=== PATIENT | female | born 1975 | race Caucasian/White ===

== ENCOUNTER 2016-09-10 10:15 | Emergency (ER) | payer MEDICAID, OTHER ==
[2016-09-10 10:31] VITALS: TEMP 98.1
[2016-09-10 10:50] LABS: COLOR YELLOW; LEUKOCYTE ESTERASE,URINE NEGATIVE (NEGATIVE); NITRITE,URINE NEGATIVE (NEGATIVE)
[2016-09-10] MEDS ORDERED: KETOROLAC 30 MG/1 ML SDV ONE (11:04)
[2016-09-10] MEDS ORDERED: KETOROLAC 30 MG/1 ML SDV IM ONE (11:05)
--- NOTE | 2016-09-10 11:07 | EDPHY ---
H & P Time Seen by Provider: 09/10/16 10:39 HPI/ROS: Chief complaint. Back pain HPI. 40-year-old female history mid back pain for 2 years. It began after endometrial surgery. There was apparently tissue on the posterior abdomen that was unresectable. It is associated with menstrual cycles that it exacerbates. He has had no recent injury and the discomfort in his worse over the past 2 days. Still in the same place but just worse. No radiation to her legs. No bowel or bladder symptoms. No weakness. She tells me no x-ray is ever been done of her back over the past 2 years. Also in the last 2 days she has had urinary frequency without burning. No fever. ROS Constitutional. no fever/chills, no weakness Eyes. no problems with vision ENT. no sore throat, no nasal drainage Cardiovascular. no chest pain Respiratory. no shortness of breath, no cough Abdominal. no abdominal pain, no nausea/vomiting, no diarrhea . no problems urinating MS. Mid back pain Skin. no rash Lymph. no swollen glands Neuro. no headache, no dizziness, no difficulty walking or with speech Past Medical/Surgical History: Past medical history significant for cholecystectomy, elbow surgery, depression obesity dysmenorrhea, hysterectomy, endometriosis Social History: Single, daily smoker, no alcohol Smoking Status: Current every day smoker Physical Exam: General Appearance: Alert well-developed female mild distress vital signs are stable Eyes: Pupils equal and round no pallor or injection. ENT, Mouth: Mucous membranes are moist. Respiratory: There are no retractions, lungs are clear to auscultation. Cardiovascular: Regular rate and rhythm. Gastrointestinal: Abdomen is soft and nontender, no masses, bowel sounds normal. Neurological: Awake and alert, sensory and motor exams grossly normal. Skin: Warm and dry, no rashes. Musculoskeletal: Neck is supple nontender. Tenderness to palpation T10-11 area. No swelling. No surface trauma. Extremities symmetrical, full range of motion. Psychiatric: Patient is oriented X 3, there is no agitation. Constitutional: Initial Vital Signs Temperature (C) 36.7 C 09/10/16 10:20 Heart Rate 68 09/10/16 10:20 Respiratory Rate 18 09/10/16 10:20 Blood Pressure 180/93 H 09/10/16 10:20 O2 Sat (%) 96 09/10/16 10:20 O2 Delivery Mode Room Air Allergies/Adverse Reactions: Penicillins Allergy (Severe, Verified 09/10/16 10:32) "can't breathe" bandaids Allergy (Uncoded 09/10/16 10:32) Home Medications: Medication Instructions Recorded oxyCODONE/APAP 325 [Percocet 1 tab PO Q4-6PRN PRN #12 tab 09/10/16 5/325] Medical Decision Making - Diagnostics Imaging: X-ray T and L-spine show some DJD but no acute fracture or dislocation Procedures: IM Toradol ED Course/Re-evaluation: Urinalysis is normal. Re-evaluation 11:45 a.m. and patient is stable. She and I discussed imaging study results, laboratory evaluation, treatment plan including criteria for return importance of follow-up and further evaluation. She expresses understanding and agreement Differential Diagnosis: The working diagnosis has been endometriosis affecting the posterior aspect of the abdomen. This is certainly possible. I was concerned about lytic lesions in the spine which I do not see. It is possible that the patient has HNP of the thoracic spine. She had urinary frequency and I considered urinary tract infection pyelonephritis which she does not seem to have. No evidence for cauda equina syndrome - Data Points Laboratory Results: 09/10/16 10:45 Urine Color YELLOW Urine Appearance CLEAR Urine pH 8.0 H (5.0-7.5) Ur Specific [place] 1.013 (1.002-1.030) Urine Protein NEGATIVE (NEGATIVE) Urine Ketones NEGATIVE (NEGATIVE) Urine Blood NEGATIVE (NEGATIVE) Urine Nitrate NEGATIVE (NEGATIVE) Urine Bilirubin NEGATIVE (NEGATIVE) Urine Urobilinogen NEGATIVE EU EU (0.2-1.0) Ur Leukocyte Esterase NEGATIVE (NEGATIVE) Ur Culture Indicated? NOT INDICATED (NI) Urine Glucose NEGATIVE (NEGATIVE) Medications Given: Discontinued Medications Ketorolac Tromethamine (Toradol) 60 mg IM EDNOW ONE Stop: 09/10/16 11:06 Last Admin: 09/10/16 11:05 Dose: 60 mg Departure - Departure Disposition: Home, Routine, Self-Care Clinical Impression: Thoracic back pain Qualifiers: Chronicity: acute Back pain laterality: midline Qualified Code(s): M54.6 - Pain in thoracic spine Condition: Good Instructions: Back Pain (ED) Additional Instructions: Ibuprofen 6-800 mg every 6 hours. Percocet in addition. Heat to your back. Activity as tolerated. Return for worsening symptoms including fever, leg weakness, bowel or bladder symptoms. Recheck in 2-3 days if not improving Referrals: Alison Matthews [Primary Care Provider] - 2-3 days, if not improved Prescriptions: oxyCODONE/APAP 5/325 [Percocet 5/325] 1 tab PO Q4-6PRN PRN #12 tab PRN Reason: Pain, Moderate
[2016-09-10] MEDS ORDERED: NS 1,000 ML IV ONE (12:25)
[2016-09-10] MEDS ORDERED: ONDANSETRON 4 MG/2 ML VIAL IVP ONE (12:25)
[2016-09-10 12:50] LABS: % IMMATURE GRANULYOCYTES 0.4 % (0.0-1.1); ABSOLUTE IMMATURE GRANULOCYTES 0.04 10^3/uL (0.00-0.10); ADD DIFF? NO; ADD MORPH? NO; ADD SCAN? NO; ATYPICAL LYMPHOCYTE FLAG 10 (0-99); FRAGMENT RBC FLAG 0 (0-99); HEMOGLOBIN 14.7 g/dL (12.6-16.3); LEFT SHIFT FLG 0 (0-99); LIPEMIA HEMOLYSIS FLAG 90 (0-99); MEAN CELL HEMOGLOBIN 31.9 pg (27.9-34.1); MEAN CELL HEMOGLOBIN CONCENTR. 34.2 g/dL (32.4-36.7); MEAN CELL VOLUME 93.3 fL (81.5-99.8); MEAN PLATELET VOLUME 11.2 fL (8.7-11.7); PLATELET CLUMPS FLAG 0 (0-99); PLATELET COUNT 207 10^3/uL (150-400); RED BLOOD CELL COUNT 4.61 10^6/uL (4.18-5.33); RED CELL DISTRIBUTION WIDTH 12.6 % (11.5-15.2)
[2016-09-10 13:20] LABS: ANION GAP 9 mEq/L (8-16); CALCIUM 8.6 mg/dL (8.5-10.4); CARBON DIOXIDE 22 mEq/l (22-31); CHLORIDE 108 mEq/L (97-110); CREATININE 0.6 mg/dL (0.6-1.0); GLOMERULAR FILTRATION RATE > 60; GLUCOSE 89 mg/dL (70-100); POTASSIUM 4.2 mEq/L (3.5-5.2); SODIUM 139 mEq/L (134-144)
[2016-09-10] MEDS ORDERED: fentaNYL 100 MCG/2 ML INJ IVP ONE ×3 (13:30→16:21)
[2016-09-10] MEDS ORDERED: ENALAPRIL MALEATE 5 MG TAB PO ONE (14:42)
[2016-09-10 15:20] VITALS: RESP 16
[2016-09-10 16:41] VITALS: BP 144/78; PULSE 76; O2SAT 98
== END 2016-09-10 16:41 | disposition home or self-care (01) ==
DX: M54.6 Pain in thoracic spine (principal); F17.200 Nicotine dependence, unspecified, uncomplicated
CPT/HCPCS: 96374; J1885; J2405; J3010

== ENCOUNTER 2017-02-15 17:06 | Emergency (ER) | payer MEDICAID ==
[2017-02-15 17:10] VITALS: RESP 18
--- NOTE | 2017-02-15 17:15 | EDPHY ---
H & P Stated Complaint: CP HPI/ROS: CHIEF COMPLAINT: Chest pressure, confusion, out of Vasotec prescription HISTORY OF PRESENT ILLNESS: The patient is a 41 y/o female who complains of chest pressure and mild confusion or fogginess that she feels is secondary to not taking her Vasotec prescription for the past week. She has a 6 month documented history of hypertension. Today she went to a local [facility] to fill her Vasotec prescription. They were unable to fill the prescription, but they did take her blood pressure which was recorded at 190/115. In addition to the chest pressure , which is diffuse, she notes she feels mildly out of breath. She states her arms feel weak and she sometimes has bilateral tingling in her fingertips. Denies headache, blurry vision, hematuria, or other pertinent symptoms. Denies alcohol or illicit drug use. REVIEW OF SYSTEMS: A ten point review of systems was performed and is negative with the exception of the items mentioned in the HPI. Past medical history: Hypertension Past surgical history: Hysterectomy Family history: Hypertension Atrial fibrillation Asthma Diabetes Social history: Lives in [place] Smoker Occasional marijuana use General Appearance: Alert. Vital signs reviewed. Blood pressure 178/115 at triage. Eyes: Pupils equal and round, no conjunctival injection, no discharge. Anicteric. ENT, Mouth: Mucous membranes are moist, no oropharyngeal erythema or edema. Neck: No lymphadenopathy, supple. Respiratory: Lungs are clear to auscultation; no wheezes, rales, or rhonchi. Cardiovascular: Regular rate and rhythm; no murmur, rub, or gallop. Gastrointestinal: Abdomen is soft and nontender, no masses or organomegaly, bowel sounds normal. Skin: Flushed, warm and dry, no rashes on exposed skin. Back: Nontender to palpation over the thoracolumbar spine. No CVAT. Extremities: No lower extremity edema, no calf tenderness or swelling. Neurological: Alert and oriented. Moving all four extremities easily and equally. CN 2-12 intact, visual acuity not tested. Strength 5/5 major motor groups BUEs and BLEs. Sensation intact to light touch over all four extremities. Gait normal. Psychiatric: Normal affect. - Personal History LMP (Females 10-55): Hysterectomy Current Tetanus/Diphtheria Vaccine: Yes Current Tetanus Diphtheria and Acellular Pertussis (TDAP): Yes Tetanus Vaccine Date: 2 yrs ago - Medical/Surgical History Hx Asthma: No Hx Chronic Respiratory Disease: No Hx Diabetes: No Hx Cardiac Disease: No Hx Renal Disease: No Hx Cirrhosis: No Hx Alcoholism: No Hx HIV/AIDS: No Hx Splenectomy or Spleen Trauma: No Other PMH: c/s x 2, cholecystectomy, elbow surgery, depression, obesity, menorrhagia,laparoscopic hysterectomy, endometriosis - Social History Smoking Status: Current every day smoker Constitutional: Initial Vital Signs Temperature (C) 37.7 C 02/15/17 17:08 Heart Rate 70 02/15/17 17:08 Respiratory Rate 18 02/15/17 17:08 Blood Pressure 178/115 H 02/15/17 17:08 O2 Sat (%) 97 02/15/17 17:08 O2 Delivery Mode Room Air Allergies/Adverse Reactions: Penicillins Allergy (Severe, Verified 02/15/17 17:08) "can't breathe" morphine Allergy (Verified 02/15/17 17:08) bandaids Allergy (Uncoded 02/15/17 17:08) Home Medications: Medication Instructions Recorded Enalapril Maleate [Vasotec 5 MG 5 mg PO DAILY #10 tab 09/10/16 (*)] Enalapril Maleate [Vasotec 5 MG 5 mg PO DAILY #30 tab 02/15/17 (*)] Medical Decision Making - Diagnostics Imaging: Discussed imaging studies w/ at home independent call center agent Radiologist, I viewed and interpreted images myself ED Course/Re-evaluation: EKG interpreted by ED physician, myself. Sinus rhythm without acute ischemic changes with a rate of 82. 1800: Reassessed patient. Blood pressure now 164/103. She is feeling slightly better. She has taken Vasotec 5 mg. Labs reviewed. CBC and chemistries normal. Awaiting troponin. She has not provided a urine sample. I do not expect to find signs of end-organ damage and anticipate discharging her home with a prescription for Vasotec 5 mg daily and [facility]. Troponin WNL. Urine normal, no proteinuria. DC BP 162/99. Differential Diagnosis: DDX includes but is not limited to medication noncompliance, dietary noncompliance, hypertensive urgency or emergency, pheochromocytoma. - Data Points Laboratory Results: Laboratory Results 02/15/17 17:35 02/15/17 17:35 Medications Given: Discontinued Medications Aspirin (Aspirin) 324 mg PO EDNOW ONE Stop: 02/15/17 17:29 Last Admin: 02/15/17 17:29 Dose: 324 mg Enalapril Maleate (Vasotec) 5 mg PO EDNOW ONE Stop: 02/15/17 17:23 Last Admin: 02/15/17 17:35 Dose: 5 mg Departure - Departure Disposition: Home, Routine, Self-Care Clinical Impression: Hypertension Qualifiers: Hypertension type: essential hypertension Qualified Code(s): I10 - Essential ( primary) hypertension Condition: Good Instructions: Enalapril (By mouth), Hypertension (ED) Additional Instructions: 1. Take Vasotec as prescribed for your hypertension. 2. Follow up with [facility] in the next week if you do not experience improvement of your symptoms and to ensure that you continue to fill your Vasotec prescription. 3. Return to the ED if you experience severe chest pain, difficulty breathing, abdominal pain, fever, numbness, or other worsening of your symptoms. Referrals: [facility] [Other] - As per Instructions Prescriptions: Enalapril Maleate [Vasotec 5 MG (*)] 5 mg PO DAILY #30 tab Report Scribed for: Effie Harvey Report Scribed by: Mae Santos Date of Report: 02/15/17 Time of Report: 17:30 Physician Review and Approval Statement: 02/15/17 17:15 Portions of this note were transcribed by the medical appointment clerk. I, Dr. Effie Harvey, personally performed the history, physical exam, and medical decision- making; and confirmed the accuracy of the information in the transcribed note.
[2017-02-15] MEDS ORDERED: ENALAPRIL MALEATE 5 MG TAB PO ONE (17:22)
[2017-02-15] MEDS ORDERED: ASPIRIN 81 MG CHEWABLE TAB ONE (17:26)
--- NOTE | 2017-02-15 17:26 | CPEKG ---
Heart Rate: 82 RR Interval: 732 P-R Interval: 164 QRSD Interval: 88 QT Interval: 408 QTC Interval: 477 P Phoenix: 69 QRS Phoenix: -25 T Wave Phoenix: 37 EKG Severity - OTHERWISE NORMAL ECG - EKG Impression: SINUS RHYTHM EKG Impression: BORDERLINE LEFT AXIS DEVIATION Electronically Signed By: Effie Harvey 15-Feb-2017 21:24:40
[2017-02-15] MEDS ORDERED: ASPIRIN 81 MG CHEWABLE TAB PO ONE (17:28)
[2017-02-15 17:41] LABS: % IMMATURE GRANULYOCYTES 0.3 % (0.0-1.1); ABSOLUTE IMMATURE GRANULOCYTES 0.03 10^3/uL (0.00-0.10); ADD DIFF? NO; ADD MORPH? NO; ADD SCAN? NO; ATYPICAL LYMPHOCYTE FLAG 10 (0-99); FRAGMENT RBC FLAG 0 (0-99); HEMATOCRIT 41.2 % (38.0-47.0); HEMOGLOBIN 13.9 g/dL (12.6-16.3); LEFT SHIFT FLG 0 (0-99); LIPEMIA HEMOLYSIS FLAG 80 (0-99); MEAN CELL HEMOGLOBIN 31.9 pg (27.9-34.1); MEAN CELL HEMOGLOBIN CONCENTR. 33.7 g/dL (32.4-36.7); MEAN CELL VOLUME 94.5 fL (81.5-99.8); PLATELET CLUMPS FLAG 10 (0-99); PLATELET COUNT 205 10^3/uL (150-400); RED BLOOD CELL COUNT 4.36 10^6/uL (4.18-5.33); RED CELL DISTRIBUTION WIDTH 12.1 % (11.5-15.2)
[2017-02-15 17:55] LABS: ANION GAP 10 mEq/L (8-16); CALCIUM 9.6 mg/dL (8.5-10.4); CARBON DIOXIDE 23 mEq/l (22-31); CHLORIDE 106 mEq/L (97-110); CREATININE 0.8 mg/dL (0.6-1.0); GLOMERULAR FILTRATION RATE > 60; GLUCOSE 94 mg/dL (70-100); SODIUM 139 mEq/L (134-144)
[2017-02-15 18:05] VITALS: PULSE 74; TEMP 98.8; O2SAT 95
[2017-02-15 18:07] LABS: TROPONIN I < 0.012 ng/mL (0.000-0.034)
[2017-02-15 18:40] LABS: COLOR YELLOW; LEUKOCYTE ESTERASE,URINE NEGATIVE (NEGATIVE); NITRITE,URINE NEGATIVE (NEGATIVE)
[2017-02-15 19:03] VITALS: BP 162/99
== END 2017-02-15 19:01 | disposition home or self-care (01) ==
DX: I10 Essential (primary) hypertension (principal); F17.200 Nicotine dependence, unspecified, uncomplicated

== ENCOUNTER 2017-03-26 17:38 | Emergency (ER) | payer OTHER, MEDICAID ==
[2017-03-26] MEDS ORDERED: NS 1,000 ML IV ONE (17:46)
[2017-03-26] MEDS ORDERED: HYDROmorphONE/DILAUDID 1 MG/ML INJ IVP ONE (17:46)
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
[2017-03-26 17:50] VITALS: RESP 18; O2SAT 94
[2017-03-26 17:53] VITALS: TEMP 98.2
[2017-03-26] MEDS ORDERED: HYDROmorphONE/DILAUDID 1 MG/ML INJ ONE (18:54)
[2017-03-26 18:58] VITALS: BP 131/85; PULSE 79
== END 2017-03-26 19:28 | disposition home or self-care (01) ==
LOC: EDUNIT#
DX: S69.91XA Unspecified injury of right wrist, hand and finger(s), initial encounter (principal); F17.200 Nicotine dependence, unspecified, uncomplicated; E86.9 Volume depletion, unspecified; V89.2XXA Person injured in unspecified motor-vehicle accident, traffic, initial encounter; Y92.410 Unspecified street and highway as the place of occurrence of the external cause
CPT/HCPCS: 96374; J1170

== ENCOUNTER 2017-08-13 21:22 | Emergency (ER) | payer MEDICAID, OTHER ==
[2017-08-13 21:42] VITALS: O2SAT 94
--- NOTE | 2017-08-13 22:22 | EDPHY ---
H & P Time Seen by Provider: 08/13/17 22:03 HPI/ROS: Chief complaint. Back pain HPI. 41-year-old female history chronic back pain presents with sharp mid back pain beginning 3 days ago. No injury. Pain with bending and twisting. No fever or cough. Pain is in the midback and occasionally goes to the lower back as far as her hips. No bowel or bladder symptoms. She occasionally gets tingling in her fingers as well. Similar to previous back pain ROS Constitutional. no fever/chills, no weakness Eyes. no problems with vision ENT. no sore throat, no nasal drainage Cardiovascular. no chest pain Respiratory. no shortness of breath, no cough Abdominal. no abdominal pain, no nausea/vomiting, no diarrhea . no problems urinating MS. Midback pain Skin. no rash Lymph. no swollen glands Neuro. no headache, no dizziness, no difficulty walking or with speech Past Medical/Surgical History: Chronic back pain, cholecystectomy, depression, hysterectomy, endometriosis, anxiety Social History: , daily smoker, no alcohol Smoking Status: Current every day smoker Physical Exam: General Appearance: Alert well-developed female mild distress vital signs are stable. Eyes: Pupils equal and round no pallor or injection. ENT, Mouth: Mucous membranes are moist. Respiratory: There are no retractions, lungs are clear to auscultation. Cardiovascular: Regular rate and rhythm. Gastrointestinal: Abdomen is soft and nontender, no masses, bowel sounds normal. Neurological: Awake and alert, sensory and motor exams grossly normal. Straight leg raising patient complains of pain at 30 degrees on the left. Deep tendon reflexes are normal. Great toe strength is normal. Sensation is normal Skin: Warm and dry, no rashes. Musculoskeletal: Neck is supple nontender. Tenderness over the mid thoracic spine at about T8 and T9 level. No surface trauma or swelling. Extremities symmetrical, full range of motion. Psychiatric: Patient is oriented X 3, there is no agitation. Constitutional: Initial Vital Signs Temperature (C) 37.2 C 08/13/17 21:39 Heart Rate 74 08/13/17 21:39 Respiratory Rate 18 08/13/17 21:39 Blood Pressure 151/101 H 08/13/17 21:39 O2 Sat (%) 94 08/13/17 21:39 O2 Delivery Mode Room Air Allergies/Adverse Reactions: Penicillins Allergy (Severe, Verified 02/15/17 17:08) "can't breathe" morphine Allergy (Verified 02/15/17 17:08) bandaids Allergy (Uncoded 02/15/17 17:08) Home Medications: Medication Instructions Recorded Enalapril Maleate [Vasotec 5 MG 5 mg PO DAILY #10 tab 09/10/16 (*)] Enalapril Maleate [Vasotec 5 MG 5 mg PO DAILY #30 tab 02/15/17 (*)] Hydrocodone/APAP 5/325 [[place] 1 - 2 tab PO Q4H PRN #7 tab 03/26/17 5/325 (RX)] Cyclobenzaprine [Flexeril 10 MG 10 mg PO TID PRN #10 tab 08/13/17 (*)] Lidocaine [Lidoderm] 1 each TP DAILY PRN #14 adh..patch 08/13/17 Medical Decision Making Procedures: Patient last took ibuprofen 3 hr ago. She is given a g of Tylenol. Lidocaine patch. Flexeril 10 mg. ED Course/Re-evaluation: Patient remained stable. She and I discussed treatment plan including criteria for return importance of follow-up and further evaluation. She expresses understanding and agreement Differential Diagnosis: I believe this is likely musculoskeletal in etiology. Patient has chronic back pain and this is appears to be in exacerbation. No trauma. Nothing to suggest cauda equina syndrome. Nothing to suggest HNP. Plan is symptomatic care with criteria for return and follow-up by her PCP Departure - Departure Disposition: Home, Routine, Self-Care Clinical Impression: Back pain Qualifiers: Back pain location: thoracic back pain Chronicity: chronic Back pain laterality : midline Qualified Code(s): M54.6 - Pain in thoracic spine; G89.29 - Other chronic pain; G89.29 - Other chronic pain Condition: Good Instructions: Back Pain (ED) Additional Instructions: Lidocaine patch leaving it on the skin for 12 hr and then off for 12 hr. Tylenol 1000 mg every 4-6 hours, ibuprofen 800 mg every 6 hr as needed for discomfort. Flexeril as muscle relaxer. Return for worsening pain, fever, leg weakness, bowel or bladder symptoms. Recheck in 2-3 days if not improved Referrals: [facility]] - 2-3 days, if not improved Prescriptions: Cyclobenzaprine [Flexeril 10 MG (*)] 10 mg PO TID PRN #10 tab PRN Reason: Pain, Moderate Lidocaine [Lidoderm] 1 each TP DAILY PRN #14 adh..patch PRN Reason: Pain, Moderate
[2017-08-13] MEDS ORDERED: CYCLOBENZAPRINE 10 MG TAB PO ONE (22:30)
[2017-08-13] MEDS ORDERED: ACETAMINOPHEN 500 MG TAB PO ONE (22:30)
[2017-08-13] MEDS ORDERED: LIDOCAINE 4%/MENTHOL 1% PATCH TD ONE (22:31)
[2017-08-13 22:58] VITALS: BP 144/98; PULSE 75; RESP 16; TEMP 98.6
[2017-08-14] MEDS ORDERED: PATCH REMOVAL 1 EA PATCH TD SCH (21:00)
== END 2017-08-13 22:55 | disposition home or self-care (01) ==
LOC: CED 21:22
DX: M54.6 Pain in thoracic spine (principal); G89.29 Other chronic pain; F17.200 Nicotine dependence, unspecified, uncomplicated

== ENCOUNTER 2017-09-02 17:04 | Emergency (ER) | payer MEDICAID ==
[2017-09-02 17:26] VITALS: BP 155/75; PULSE 74; RESP 18; TEMP 98.8; O2SAT 96
[2017-09-02] MEDS ORDERED: ACETAMINOPHEN 500 MG TAB PO ONE (17:31)
[2017-09-02] MEDS ORDERED: AZITHROMYCIN 250 MG TAB PO ONE (17:34)
--- NOTE | 2017-09-02 18:35 | EDPHY ---
H & P Time Seen by Provider: 09/02/17 17:19 HPI/ROS: This patient complains of sore throat -2 days duration 6/10 intensity right more than left side. She has associated mild headache frontal in location similar to prior headaches. Her sore throat and headache diminish with ibuprofen. She had 600 mg of ibuprofen 3 hr prior to arrival. She notes no other exacerbating factors. She was exposed to her daughter who was diagnosed with strep pharyngitis this week. She drove by private vehicle for evaluation of her symptoms. ROS: Constitutional: No high fevers or chills. No fatigue. HEENT: She does have some odynophagia. No dysphonia. Pulmonary: No cough GI: No nausea vomiting Musculoskeletal: She reports mild arthralgias diffusely. No joint swelling or redness. 5 point ROS is otherwise negative. Smoking Status: Current every day smoker Physical Exam: Physical Exam Vital signs are normal. General: No acute distress HEENT: Nose: Clear discharge bilaterally. No sinus tenderness to percussion. Ears: External canals and tympanic membranes are clear with no erythema or abnormal findings bilaterally. Oropharynx: Mild erythema. No exudates. No dysphonia. No drooling or stridor. Eyes: Pupils equal and react to light. Extraocular motions are intact. Neck: Supple with no meningismus. No lymphadenopathy Lungs: Clear to auscultation bilaterally with no rales, rhonchi or wheeze. No respiratory distress. Cardiac: Regular rate and rhythm with no murmur gallop or rub Skin: No rash or pallor. Neuro: Alert with no focal deficits noted. Initial differential diagnosis: Strep pharyngitis, viral pharyngitis Constitutional: Initial Vital Signs Temperature (C) 37.1 C 09/02/17 17:25 Heart Rate 74 09/02/17 17:25 Respiratory Rate 18 09/02/17 17:25 Blood Pressure 155/75 H 09/02/17 17:25 O2 Sat (%) 96 09/02/17 17:25 O2 Delivery Mode Room Air Allergies/Adverse Reactions: Penicillins Allergy (Severe, Verified 09/02/17 17:23) "can't breathe" morphine Allergy (Verified 09/02/17 17:23) bandaids Allergy (Uncoded 09/02/17 17:23) Home Medications: Medication Instructions Recorded Azithromycin [Zithromax] 250 mg PO DAILY #4 tab 09/02/17 Buprenorphine HCl 09/02/17 Cyclobenzaprine [Flexeril 10 MG 09/02/17 (*)] Furosemide [Lasix] 09/02/17 Losartan Potassium [Cozaar 25 mg 09/02/17 (*)] PARoxetine HCL [Paroxetine Cr] 09/02/17 MDM/Departure - MDM Diagnostics: Rapid strep is negative. Medications Given: Discontinued Medications Acetaminophen (Tylenol) 1,000 mg PO EDNOW ONE Stop: 09/02/17 17:32 Last Admin: 09/02/17 17:45 Dose: 1,000 mg Azithromycin (Zithromax) 500 mg PO EDNOW ONE PRN Reason: Protocol Stop: 09/02/17 17:35 Last Admin: 09/02/17 17:46 Dose: 500 mg ED Course/Re-evaluation: Discussion: Although this patient's rapid strep is negative, given exposure to her daughter with strep in her current symptoms and findings, will cover potential strep with Zithromax. I counseled regarding this. - Depart Disposition: Home, Routine, Self-Care Clinical Impression: Pharyngitis Qualifiers: Pharyngitis/tonsillitis etiology: unspecified etiology Qualified Code(s): J02.9 - Acute pharyngitis, unspecified Condition: Good Instructions: Pharyngitis (ED) Additional Instructions: Diagnosis: Sore throat Plan: Zithromax antibiotic Ibuprofen Tylenol for pain No work tomorrow. Return for any significant worsening despite the treatment plan Follow-up with primary care physician for any ongoing symptoms that persist beyond the next 7-10 days despite the treatment plan Prescriptions: Azithromycin [Zithromax] 250 mg PO DAILY #4 tab Referrals: [facility],. [Primary Care Provider] - As per Instructions
== END 2017-09-02 17:47 | disposition home or self-care (01) ==
LOC: CED 17:04
DX: J02.9 Acute pharyngitis, unspecified (principal); F17.200 Nicotine dependence, unspecified, uncomplicated
CPT/HCPCS: 87880-PO

== ENCOUNTER → 2017-09-26 | Outpatient (CLI) | payer MEDICAID | LOC: FIMAGING 08:17 | PROVIDERS: ATTEND Nurse Practitioner Family | DX: M54.6 Pain in thoracic spine (principal); G56.02 Carpal tunnel syndrome, left upper limb; M25.521 Pain in right elbow ==

== ENCOUNTER 2017-10-08 19:27 | Emergency (ER) | payer MEDICAID ==
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
[2017-10-08] MEDS ORDERED: HYDROCOD/APAP 5/325 PREPACK#6 BTL TAKEHOME ONE ×2 (20:34→21:07)
[2017-10-08] MEDS ORDERED: IBUPROFEN 600 MG TAB PO ONE ×3 (20:55→21:08)
[2017-10-08 21:12] VITALS: BP 118/64
== END 2017-10-08 21:11 | disposition home or self-care (01) ==
LOC: CED 19:27
DX: M84.375A Stress fracture, left foot, initial encounter for fracture (principal); F17.200 Nicotine dependence, unspecified, uncomplicated; W22.8XXA Striking against or struck by other objects, initial encounter
CPT/HCPCS: 73630-PO; L4386

== ENCOUNTER 2018-02-01 | Emergency (ER) | payer MEDICAID | END 2018-02-01 14:41 | disposition home or self-care (01) ==

== ENCOUNTER 2018-06-25 12:52 | Emergency (ER) | payer MEDICAID ==
[2018-06-25 13:06] VITALS: BP 170/103
[2018-06-25] MEDS ORDERED: IBUPROFEN 600 MG TAB PO ONE (13:21)
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
== END 2018-06-25 14:04 | disposition home or self-care (01) ==
LOC: CED 12:52
DX: S16.1XXA Strain of muscle, fascia and tendon at neck level, initial encounter (principal); S70.01XA Contusion of right hip, initial encounter; V03.10XA Pedestrian on foot injured in collision with car, pick-up truck or van in traffic accident, initial encounter; Y92.481 Parking lot as the place of occurrence of the external cause
CPT/HCPCS: 72050-PO; 99283-ER

== ENCOUNTER 2018-10-17 14:11 | Emergency (ER) | payer MEDICAID ==
[2018-10-17] MEDS ORDERED: DEXAMETHASONE 10 MG/ML VIAL IVP ONE (14:36)
[2018-10-17] MEDS ORDERED: NS 1,000 ML IV ONE (14:36)
[2018-10-17] MEDS ORDERED: METOCLOPRAMIDE 10 MG/2 ML VIAL IVP ONE (14:36)
--- NOTE | 2018-10-17 14:46 | EDPHY ---
H & P Stated Complaint: 4 days dizziness left double vision when looking to the right Source: Patient Exam Limitations: No limitations - Personal History LMP (Females 10-55): Hysterectomy Current Tetanus Diphtheria and Acellular Pertussis (TDAP): Yes Tetanus Vaccine Date: 2014 - Medical/Surgical History Hx Asthma: No Hx Chronic Respiratory Disease: No Hx Diabetes: No Hx Cardiac Disease: No Hx Renal Disease: No Hx Cirrhosis: No Hx Alcoholism: No Hx HIV/AIDS: No Hx Splenectomy or Spleen Trauma: No Other PMH: c/s x 2, cholecystectomy, elbow surgery, depression, obesity, laparoscopic hysterectomy, endometriosis, anxiety, HTN, L foot fx October 2017 - Family History Significant Family History: No pertinent family hx - Social History Smoking Status: Heavy smoker Alcohol Use: Rarely Drug Use: None, Marijuana (The patient tried edible marijuana 3 days ago to see if it helps her symptoms and reported no improvement.) Time Seen by Provider: 10/17/18 14:19 HPI/ROS: This patient describes a gradual onset of mild occipital headache with concurrent vision change in the left eye and dizziness that started 4 days prior to arrival. Since that time she describes headache peak intensity 4/10 achy in nature, currently 1/10, different than her typical left frontal location of her migraines. She describes vision change in left eye characterized by diplopia with leftward gaze associated with "lytes". It seems that she is describing the type of scintillating scotoma that is intermittent. She describes the dizziness as a "wobbliness sometimes when she walks". She explains that she had a spinning sensation last night but has had none since. Does not seem to worsen with head movement particularly. She has never had dizziness with migraines before. She is accompanied by her sister who brought her in by private vehicle for evaluation. She has not had any analgesics or migraine specific medications for symptoms today. ROS: Constitutional: No fevers. No other complaints HEENT: No URI symptoms. No sore throat. No ear pain. Neuro: No recent head trauma. She reports some difficulty concentrating over the past 4 days. She has had no analgesics or other sedatives today. She denies any focal numbness tingling weakness. She does not notice any significant visual symptoms when stop looking straight ahead. Pulmonary: No cough shortness of breath Cardiovascular: No heart palpitations chest pain or lightheadedness. No lower extremity edema. GI: She reports nausea for the past 2 days but no vomiting. : No complaints Integumentary: No skin rash 10 point review of symptoms is performed and otherwise negative with exception of pertinent positives and negatives listed in HPI and ROS (Graham Hodges) - Physical Exam Exam: Physical exam: Vital signs are normal General: Patient is in no acute distress. HEENT: Is no external evidence of trauma on exam. Eyes: Pupils are equal and reactive to light. Extraocular motions are intact. Optic fundi: Clear with no papilledema or hemorrhage. Nose atraumatic. Ears: Clear bilaterally with no hemotympanum. Oropharynx: No dental trauma or malocclusion. No intraoral lacerations. Eyes: Pupils are equal and reactive to light. Extraocular motions are intact. Optic fundi: Clear with no papilledema or hemorrhage. Lungs: Clear to auscultation bilaterally Neck: Supple no meningismus. Cardiac: Regular rate and rhythm no murmur gallop or rub. Abdomen: Soft nontender no organomegaly Neuro: GCS of 15. Cranial nerves II through XII intact with exception of diplopia and leftward gaze. I do not appreciate any gross dysconjugate gaze on exam. Cerebellar exam is normal as judged by symmetric rapid hand movements bilaterally. No pronator drift. No sensory or motor deficits are appreciated. Visual field confrontational testing reveals no deficits. Initial differential diagnosis: Migraine, tension headache, JUNIOR SALES ASSISTANT lesion, intracranial bleed, abducen's nerve palsy, MS, Cavernous venous thrombosis ( Graham Hodges) Constitutional: Initial Vital Signs Temperature (C) 37.6 C 10/17/18 14:16 Heart Rate 83 10/17/18 14:16 Respiratory Rate 16 10/17/18 14:16 Blood Pressure 148/86 H 10/17/18 14:16 O2 Sat (%) 93 10/17/18 14:16 O2 Delivery Mode Room Air Allergies/Adverse Reactions: Penicillins Allergy (Severe, Verified 10/17/18 17:17) Pt reports "can't breathe" gabapentin Allergy (Verified 10/17/18 17:17) morphine Allergy (Verified 10/17/18 17:17) Pt reports "cant breathe" bandaids Allergy (Uncoded 06/25/18 13:06) Pt reports rash Home Medications: Medication Instructions Recorded Losartan Potassium [Cozaar 25 mg 09/02/17 (*)] PARoxetine HCL [Paroxetine Cr] 09/02/17 Lasix 02/01/18 Wellbutrin Xl 02/01/18 Ibuprofen [Motrin (*)] 600 mg PO Q6 PRN #30 tab 06/25/18 Cyclobenzaprine HCl 10/17/18 HYDROcodone BITARTRATE 10/17/18 Prazosin HCl 10/17/18 Medical Decision Making - Diagnostics Imaging: Discussed imaging studies w/ order caller Radiologist - Diagnostics Imaging Results: Imaging Impressions Head CT 10/17/18 14:36 Impression: No acute intracranial findings. If symptoms persist and clinical tissue warrants, consider MR orbits. Findings discussed with GRAHAM HODGES 10/17/2018 at 15:24. Brain MRI 10/17/18 17:21 Impression: 1. No acute intracranial findings. 2. Nonspecific white matter FLAIR hyperintensities which could be related to sequela of migraines, demyelination, chronic microvascular ischemic gliosis ( more numerous than expected for chronic microvascular ischemic gliosis in a patient of this age), or other etiologies. Findings discussed with CONRAD GUTIERREZ 10/17/2018 at 18:50. Head MRA 10/17/18 17:21 Impression: Mild narrowing of the A1 segments of the anterior cerebral arteries bilaterally, which could be related to vasospasm, vasculitis, artifact, or other etiology with otherwise unremarkable appearance of the intracranial vasculature, as above. Findings discussed with CONRAD GUTIERREZ 10/17/2018 at 18:50. Neck MRA 10/17/18 17:21 Impression: 1. No acute findings. 2. Possible mild stenosis of the right vertebral artery origin versus artifact. 3. Additional findings, as above. Measurement of carotid stenosis is based on the residual internal carotid diameter with [place] Symptomatic Carotid Endarterectomy Trial (NASCET) based stenosis levels. Message left with Conrad Gutierrez MD on October 17, 2018 at 1840 hours. ED Course/Re-evaluation: Discussion: Patient here with mild headache and ocular symptoms likely representing an atypical migraine for her but differential diagnosis includes potential JUNIOR SALES ASSISTANT lesion, hemorrhagic stroke or other and she warrants neuro imaging to rule potential diagnoses out given her findings and complaints. We'll initiate migraine treatment minus NSAIDs pending CT scan of head. IV normal saline, Reglan and Benadryl IV Decadron 10 mg IV At 3:30 p.m. The patient reports a persistent headache about 2/10 and persistent diplopia despite the Reglan and Benadryl. Her CT scan of the head is read as normal by Dr. Felton. [facility] will follow up with the patient post Toradol to evaluate for persistence of symptoms and consideration further neuro imaging or workup. ( Graham Hodges) Other Provider: I assumed care patient after CT scan. Patient was given a dose of Toradol by Dr. Hodges. On re-evaluation she complained minimal headache but had persistent of vertigo and diplopia when she looked to the left turned her head to the left side. There was no perceivable lateral gaze impairment. There is minimal nystagmus. This is not associated with any nausea or vomiting. The symptoms have been persistent and are unchanged for the medications she received here. She feels that they have worsened over the past 4 days. She denies any trauma to the neck. The patient does smoke. She has a family history of a mother with a blood clot in her leg. Given the patient's persistent symptoms I was concerned about vertebral artery dissection or possibly cavernous sinus thrombosis and therefore I think the patient needs MR I study. I discussed case Dr. Conrad Gutierrez at [facility] Department who accepts the patient in transfer. (Rachel Davila) - Data Points Medications Given: Discontinued Medications Dexamethasone (Decadron Injection) 10 mg IVP EDNOW ONE Stop: 10/17/18 14:37 Last Admin: 10/17/18 14:57 Dose: 10 mg Diphenhydramine HCl (Benadryl Injection) 25 mg IVP EDNOW ONE Stop: 10/17/18 14:37 Last Admin: 10/17/18 14:56 Dose: 25 mg Sodium Chloride (Ns) 1,000 mls @ 0 mls/hr IV ONCE ONE; Wide Open PRN Reason: Protocol Stop: 10/17/18 14:37 Last Admin: 10/17/18 14:50 Dose: 1,000 mls Ketorolac Tromethamine (Toradol) 15 mg IVP EDNOW ONE Stop: 10/17/18 15:32 Last Admin: 10/17/18 15:34 Dose: 15 mg Metoclopramide HCl (Reglan Injection) 10 mg IVP EDNOW ONE Stop: 10/17/18 14:37 Last Admin: 10/17/18 15:00 Dose: 10 mg Departure - Departure Clinical Impression: Vertigo, Headache Instructions: Vertigo (ED), Acute Headache (ED) Referrals: Alessia Mata NP [Primary Care Provider] - As per Instructions
[2018-10-17] MEDS ORDERED: KETOROLAC 15 MG/1 ML SDV IVP ONE (15:31)
[2018-10-17] MEDS ORDERED: KETOROLAC 15 MG/1 ML SDV ONE (15:32)
[2018-10-17] MEDS ORDERED: GADOBUTROL 10 ML VIAL IVP ONE (17:24)
[2018-10-17] MEDS ORDERED: NA BICARBONATE 50 MEQ/50 ML VIAL ONE (17:24)
--- NOTE | 2018-10-17 17:30 | EDPHY ---
H & P Stated Complaint: 4 days dizziness left double vision when looking to the right Time Seen by Provider: 10/17/18 14:19 HPI/ROS: CHIEF COMPLAINT: Vertigo and diplopia when looking to the left HISTORY OF PRESENT ILLNESS: The patient is a 42-year-old female with a history of migraines who developed a mild headache 4 days ago as well as slight unsteady gait and vertigo particularly when looking to the left. She assumed that it was a migraine although she has not had these symptoms before with migraines. Her symptoms persisted however and today she presented to [facility]. There she had a relatively normal exam and mild occipital headache. She was treated with Reglan and Toradol and her headache resolved. CT was negative. She continued to however to complain of diplopia when looking to the left an even has trouble participating in the exam. She feels completely asymptomatic when looking forward or to the right. No tinnitus. No trauma. No fever. No focal extremity weakness or facial deficits. No speech abnormality. No nausea vomiting. No chest pain. Severity: Moderate Modifying factors: None REVIEW OF SYSTEMS: Constitutional: denies: chills, fever, recent illness, recent injury EENTM: denies: blurred vision, double vision, nose congestion Respiratory: denies: cough, shortness of breath Cardiac: denies: chest pain, irregular heart rate, lightheadedness, palpitations Gastrointestinal/Abdominal: denies: abdominal pain, diarrhea, nausea, vomiting, blood streaked stools Genitourinary: denies: dysuria, frequency, hematuria, pain Musculoskeletal: denies: joint pain, muscle pain Skin: denies: lesions, rash, jaundice, bruising Neurological: See HPI denies: numbness, paresthesia, tingling, weakness Hematologic/Lymphatic: denies: blood clots, easy bleeding, easy bruising Immunologic/allergic: denies: HIV/AIDS, transplant 10 systems reviewed and negative except as noted EXAM: GENERAL: Well-appearing, well-nourished and in no acute distress. HEAD: Atraumatic, normocephalic. EYES: No nystagmus no saccade. No correction test of skew. Pupils equal round and reactive to light, extraocular movements intact, sclera anicteric, conjunctiva are normal. ENT: TMs normal, nares patent, oropharynx clear without exudates. Moist mucous membranes. NECK: Normal range of motion, supple without lymphadenopathy or JVD. LUNGS: Breath sounds clear to auscultation bilaterally and equal. No wheezes rales or rhonchi. HEART: Regular rate and rhythm without murmurs, rubs or gallops. ABDOMEN: Soft, nontender, normoactive bowel sounds. No guarding, no rebound. No masses appreciated. BACK: No CVA tenderness, no spinal tenderness, step-offs or deformities EXTREMITIES: Normal range of motion, no pitting or edema. No clubbing or cyanosis. NEUROLOGICAL: Cranial nerves II through XII grossly intact. Closes eyes and stops participating in the exam when I have her follow my finger to the left field of vision. No visible nystagmus prior to this. Normal speech, normal gait. Normal heel to toe walking. 5/5 strength, normal movement in all extremities, normal sensation, normal reflexes PSYCH: Normal mood, normal affect. SKIN: Warm, dry, normal turgor, no visible rashes or lesions. Source: Patient Exam Limitations: No limitations - Personal History LMP (Females 10-55): Hysterectomy Current Tetanus Diphtheria and Acellular Pertussis (TDAP): Yes Tetanus Vaccine Date: 2014 - Medical/Surgical History Hx Asthma: No Hx Chronic Respiratory Disease: No Hx Diabetes: No Hx Cardiac Disease: No Hx Renal Disease: No Hx Cirrhosis: No Hx Alcoholism: No Hx HIV/AIDS: No Hx Splenectomy or Spleen Trauma: No Other PMH: c/s x 2, cholecystectomy, elbow surgery, depression, obesity, laparoscopic hysterectomy, endometriosis, anxiety, HTN, L foot fx October 2017 - Family History Significant Family History: No pertinent family hx - Social History Smoking Status: Heavy smoker Alcohol Use: None Constitutional: Initial Vital Signs Temperature (C) 37.6 C 10/17/18 14:16 Heart Rate 83 10/17/18 14:16 Respiratory Rate 16 10/17/18 14:16 Blood Pressure 148/86 H 10/17/18 14:16 O2 Sat (%) 93 10/17/18 14:16 O2 Delivery Mode Room Air Allergies/Adverse Reactions: Penicillins Allergy (Severe, Verified 10/17/18 17:17) Pt reports "can't breathe" gabapentin Allergy (Verified 10/17/18 17:17) morphine Allergy (Verified 10/17/18 17:17) Pt reports "cant breathe" bandaids Allergy (Uncoded 06/25/18 13:06) Pt reports rash Home Medications: Medication Instructions Recorded Losartan Potassium [Cozaar 25 mg 09/02/17 (*)] PARoxetine HCL [Paroxetine Cr] 09/02/17 Lasix 02/01/18 Wellbutrin Xl 02/01/18 Ibuprofen [Motrin (*)] 600 mg PO Q6 PRN #30 tab 06/25/18 Cyclobenzaprine HCl 10/17/18 HYDROcodone BITARTRATE 10/17/18 Prazosin HCl 10/17/18 Medical Decision Making - Diagnostics Imaging Results: Imaging Impressions Head CT 10/17/18 14:36 Impression: No acute intracranial findings. If symptoms persist and clinical tissue warrants, consider MR orbits. Findings discussed with KWAKU HODGES 10/17/2018 at 15:24. Brain MRI 10/17/18 17:21 Impression: 1. No acute intracranial findings. 2. Nonspecific white matter FLAIR hyperintensities which could be related to sequela of migraines, demyelination, chronic microvascular ischemic gliosis ( more numerous than expected for chronic microvascular ischemic gliosis in a patient of this age), or other etiologies. Findings discussed with DERREK GUTIERREZ 10/17/2018 at 18:50. Head MRA 10/17/18 17:21 Impression: Mild narrowing of the A1 segments of the anterior cerebral arteries bilaterally, which could be related to vasospasm, vasculitis, artifact, or other etiology with otherwise unremarkable appearance of the intracranial vasculature, as above. Findings discussed with DERREK GUTIERREZ 10/17/2018 at 18:50. Neck MRA 10/17/18 17:21 Impression: 1. No acute findings. 2. Possible mild stenosis of the right vertebral artery origin versus artifact. 3. Additional findings, as above. Measurement of carotid stenosis is based on the residual internal carotid diameter with [place] Symptomatic Carotid Endarterectomy Trial (NASCET) based stenosis levels. Message left with Derrek Gutierrez MD on October 17, 2018 at 1840 hours. Imaging: Discussed imaging studies w/ top polisher Radiologist ED Course/Re-evaluation: Patient's symptoms are unusual. She has difficulty participating in the eye exam and looking to the left but no obvious dysconjugate gaze or nystagmus or visual skew. CT negative. Sent here for MRI MRA to rule out dissection or cavernous sinus thrombosis. 7:00 p.m. we discussed the MRI results which are reassuring. The patient is still having brief but intense vertigo if she looks to the left. It is primarily with her left eye. She is asymptomatic in the right eye. As a matter of fact if I have her cover up her left eye she can look to the left without any symptoms at all. This is obviously inconsistent. I discussed her case with Dr. Ca who is on-call for Neurology. We discussed the MRI results. He does not feel that there is anything that we need to do acutely. He will follow up with her in the clinic this week. Patient is happy with this plan. We discussed indications for returning. Differential Diagnosis: Partial list of the Differential diagnosis considered include but were not limited to; atypical migraine, vasculitis, dissection, thrombosis and although unlikely based on the history and physical exam, I also considered demyelinating disease, tumor, aneurysm, infection. I discussed these differential diagnoses and the plan with the patient as well as the usual and expected course. The patient understands that the diagnosis is provisional and that in medicine we are not always correct and that further workup is often warranted. Usual and customary warnings were given. All of the patient's questions were answered. The patient was instructed to return to the emergency department should the symptoms at all worsen or return, otherwise to followup with the physician as we discussed. - Data Points Medications Given: Discontinued Medications Dexamethasone (Decadron Injection) 10 mg IVP EDNOW ONE Stop: 10/17/18 14:37 Last Admin: 10/17/18 14:57 Dose: 10 mg Diphenhydramine HCl (Benadryl Injection) 25 mg IVP EDNOW ONE Stop: 10/17/18 14:37 Last Admin: 10/17/18 14:56 Dose: 25 mg Sodium Chloride (Ns) 1,000 mls @ 0 mls/hr IV ONCE ONE; Wide Open PRN Reason: Protocol Stop: 10/17/18 14:37 Last Admin: 10/17/18 14:50 Dose: 1,000 mls Ketorolac Tromethamine (Toradol) 15 mg IVP EDNOW ONE Stop: 10/17/18 15:32 Last Admin: 10/17/18 15:34 Dose: 15 mg Metoclopramide HCl (Reglan Injection) 10 mg IVP EDNOW ONE Stop: 10/17/18 14:37 Last Admin: 10/17/18 15:00 Dose: 10 mg Departure - Departure Disposition: Home, Routine, Self-Care Clinical Impression: Vertigo Headache Qualifiers: Headache type: unspecified Headache chronicity pattern: acute headache Intractability: not intractable Qualified Code(s): R51 - Headache Condition: Fair Instructions: Vertigo (ED), Acute Headache (ED) Referrals: Alessia Mata NP [Primary Care Provider] - As per Instructions
[2018-10-17 19:14] VITALS: BP 121/74
== END 2018-10-17 19:12 | disposition home or self-care (01) ==
LOC: CED 14:11
DX: R42 Dizziness and giddiness (principal); R51 Headache; E86.9 Volume depletion, unspecified
CPT/HCPCS: 70450-PO; 70551-PN; 96374; A9585; J1100; J1200; J1885; J2765